=== PATIENT | female | born 1965 | race Hispanic/Latino ===

== ENCOUNTER 2018-05-09 03:46 | Inpatient (IN) | payer OTHER ==
[~2018-05-09] VITALS: Ht 157.5 cm; Wt 87.8 kg
[~2018-05-09 03:46] MED LIST: AMITRIPTYLINE H25 M2 PO; AMLODIPINE BESYL5 M1 PO; BENTYL20 M1 PO; DUAVEE 0.45-201 EACH PO; LYRICA150 M1 PO; LYRICA225 M1 PO; MOBIC15 M1 PO; NAPROSYN500 M1 PO; PANTOPRAZOLE SO40 M1 PO; PROTONIX40 M3 PO; ZOFRAN ODT4 M1 SL
--- NOTE | 2018-05-09 14:35 | Admission Core Measures ---
Acute Coronary Syndrome (CM) ACS Core Measures Acute Coronary Syndrome Diagnosis No Congestive Heart Failure (NEW) CHF Core Measures Congestive Heart Failure Diagnosis No Cerebrovascular Accident CVA Core Measures CVA/TIA Diagnosis No Venous Thromboembolism VTE Core Pepito (View Protocol) VTE Risk Factors Surgery No Mechanical VTE Prophylaxis d/t N/A MechProphylax Ordered No VTE Pharm Prophylaxis d/t NA PharmProphylax ordered Problem List As ranked by this Provider includes Assessment & Plan 1. S/P laparoscopic sleeve gastrectomy 2. GERD (gastroesophageal reflux disease) 3. Sleep apnea 4. Morbid obesity HOME MEDS Home Med List Amitriptyline HCl 25 MG TABLET 1 TAB PO QPM SLEEP (Reported) Amlodipine Besylate 5 MG TABLET 1 TAB PO DAILY BP (Reported) Naproxen (Naprosyn) 500 MG TABLET 1 TAB PO BID PRN PAIN (Reported) Pantoprazole Sodium 40 MG TABLET.DR 1 TAB PO DAILY GI (Reported) Pregabalin (Lyrica) 225 MG CAPSULE 1 CAP PO BID UNKNOWN (Reported)
--- NOTE | 2018-05-09 14:36 | Surg Short-stay <48hrs Dis Sum ---
Visit Information Visit Dates Admission Date: 05/09/18 Discharge Date: 05/10/18 Surgical Short Stay DC Summary Admission Diagnosis: Morbid Obesity (BMI 38), ZBIGNIEW, GERD, Fibromyalgia Final Diagnosis: Morbid Obesity (BMI 38), ZBIGNIEW, GERD, Fibromyalgia, and hiatal hernia Procedure(s): Surgery Date: 05/09/18 Name of Procedure: Laparoscopic Sleeve Gastrectomy, Laparoscopic hiatal hernia repair Summary/Significant Findings: Electively scheduled laparoscopic sleeve gastrectomy, and hiatal hernia repair by on 05/09/18, for history of morbid obesity (BMI 38), ZBIGNIEW, GERD, fibromyalgia, and hiatal hernia. Started on stage 1 bariatric diet post- operatively. Pain control transitioned from iv to oral medication, as able. Her blood pressure was monitored post-operatively, while her home dose of norvasc 5 daily was held. Lovenox teaching done prior to her discharge to home, according to her pre-operative risk assessment. Condition at Discharge: stable Discharge Disposition: home or self care Discharge instructions provided to patient/family: Yes Post discharge follow-up plan: one week follow up with Copies to: Praneeth CARRASCO,Carmen Caraballo
--- NOTE | 2018-05-09 14:38 | Patient Discharge Instructions ---
Discharge Instructions General Discharge Information You were seen/treated for: Morbid Obesity (BMI 38), ZBIGNIEW, GERD, Fibromyalgia, and hiatal hernia You had these procedures: Surgery Date: 05/09/18 Name of Procedure: Laparoscopic Sleeve Gastrectomy, Laparoscopic hiatal hernia repair Watch for these problems: fever>101.3, increased pain, redness/swelling/drainage, shortness of breath, chest pains, dizziness No bath, but you may shower: Yes Other wound care: ok to remove bandaids. leave white steri strips in place. keep incisions clean & dry. Diet Continue normal diet: No Recommended Diet: Bariatric Additional DIET Information: weekly bariatric stage diet advancement as directed, as tolerated Activity Full Activity/No Limits: No Activity Self Limited: Yes Pounds, do NOT lift more than: 10 Other activity limits: no heavy lifting. no strenuous activity. Additional ACTIVITY Info: walk frequently Acute Coronary Syndrome Inclusion Criteria At DC or during hospital stay patient has or had the following: ACS DIAGNOSIS No Discharge Core Measures Meds if any: Prescribed or Continued at Discharge Meds if any: NOT Prescribed or Continued at Discharge Congestive Heart Failure Inclusion Criteria At DC or during hospital stay patient has or had the following: CHF DIAGNOSIS No Discharge Core Measures Meds if any: Prescribed or Continued at Discharge Meds if any: NOT Prescribed or Continued at Discharge Cerebrovascular accident Inclusion Criteria At DC or during hospital stay patient has or had the following: CVA/TIA Diagnosis No Discharge Core Measures Meds if any: Prescribed or Continued at Discharge Meds if any: NOT Prescribed or Continued at Discharge Venous thromboembolism Inclusion Criteria VTE Diagnosis No VTE Type NONE VTE Confirmed by (Test) NONE Discharge Core Measures - Per Current guidelines, there needs to be overlap - treatment for the first 5 days of Warfarin therapy. - If discharged on Warfarin prior to 5 days of - overlap therapy, the patient will need to be - assessed for post discharge needs including - *Post discharge parental anticoagulation - *Warfarin and/or parental anticoagulation education - *Follow up date to check INR post discharge At least 5 days overlap therapy as Inpatient No Meds if any: Prescribed or Continued at Discharge Note: Overlap Therapy is Warfarin and Anticoagulant Meds if any: NOT Prescribed or Continued at Discharge
--- NOTE | 2018-05-09 17:06 | Operative Report ---
Operative/Inv Procedure Report Surgery Date: 05/09/18 Name of Procedure: Laparoscopic Sleeve Gastrectomy, Laparoscopic hiatal hernia repair Pre-Operative Diagnosis: Morbid Obesity BMI 38, ZBIGNIEW, GERD, Fibromyalgia Post-Operative Diagnosis: Morbid Obesity BMI 38, ZBIGNIEW, GERD, Fibromyalgia, hiatal hernia Estimated Blood Loss: less than 50ml Surgeon/Air Motor Repairer: Tarun Greenwood DO Anesthesia: general endotracheal tube IV Fluids: 1200 cc Drains: None Specimens: Stomach Complications: None Condition: Stable Operative Indication: This is a 52-year-old female that presented to the office for workup for bariatric surgery. After appropriate workup was completed I discussed with the patient the band, the sleeve, and the gastric bypass. The patient chose to undergo a sleeve gastrectomy. All risks including but not limited to bleeding, infection, leak, stricture, injury to surrounding bowel/esophagus/stomach/liver/ spleen, long-term reflux, DVT/PE, and mortality of 09/999 patients were discussed in detail. The patient understood everything and decided to proceed. Operative/Procedure Note Note: The patient was brought to the operating room and placed on the operating room table in supine position. Venodyne stockings were placed and adequate general endotracheal anesthesia was obtained. The patient was prepped and draped in standard surgical fashion. Began the procedure by making a 2 cm transverse incision supraumbilically and slightly to the left of the midline. Then using a 12 mm clear Visiport and a 10 mm 0 laparoscope, the abdominal cavity was accessed. Great care was taken to go through the anterior rectus sheath, the posterior rectus sheath, and through the peritoneum. Once we entered the peritoneum the abdominal cavity was insufflated to 15 mmHg. Upon initial examination no obvious gross pathology was seen. Accessory trocars were placed, 5 mm in the epigastrium for the Rogelio liver retractor. The retractor was inserted and the liver was retracted anteriorly exposing the hiatus, small hiatal hernia was seen. 5 mm ports were placed in the right and left upper quadrant, a 5 mm left lateral port, and a 15 mm right lateral port. Began the procedure by mobilizing the greater curvature of the stomach approximately 7 cm from the pylorus. Once the retrogastric space was reached the whole greater curvature was mobilized maintaining hemostasis using Harmonic scalpel. Full hiatal dissection was performed, a small hiatal hernia was seen. The left josy of the diaphragm was dissected away from the esophagus, reducing the hernia sac. We then brought our attention to the right josy, the pars flaccida was opened until the right josy was clearly visualized. Following this the right josy was dissected away from the esophagus as well and the esophagus was circumferentially dissected out of the chest. Vagus nerves were visualized and preserved. At the completion of dissection the esophagus was in the abdominal cavity for about 2-3 cm. The esophagus was retracted anteriorly and the hiatus was closed using 2-0 Tycron suture. At the completion of the closure there was ample room for the esophagus and the hiatus was adequately closed. Posterior adhesions were taken down using Harmonic scalpel as well. Once the stomach was adequately mobilized a 38 Bulgarian bougie was inserted and placed along the lesser curvature of the stomach. Once the bougie was in the appropriate position we began creating our sleeve, two 60 mm black staple loads with seamguard followed by three 60 mm purple staple loads with seamguard as well and finished with a 45 mm purple plain load. Great care was taken to leave ample room at the incisura angularis, to prevent any twisting or kinking of the sleeve, to stay lateral to the esophagogastric fat pad, and to do a full fundal excision. At the completion of the staple line the staple line was examined, it appeared intact and some bleeding was noted which was controlled using endoclips. The bougie was removed, the sleeve was lying nicely without any twisting or kinking. The resected stomach was removed through the right lateral port site. The port and the left upper quadrant were irrigated until clear. All ports were removed under direct visualization no obvious bleeding was noted. The 15 mm port site fascia was closed using 0 Vicryl suture. The skin was closed using 4-0 Monocryl. Steri-Strips and dressings were placed. The patient was successfully extubated and transferred to the recovery room in stable condition. The patient tolerated the procedure well with no complications. Findings: 3 sliding hiatal hernia, 38 Fr bougie CC: Carmen March
[2018-05-09] MEDS ORDERED: LOVENOX40 MG/0.1 SC (17:21)
[2018-05-09] MEDS ORDERED: HYCET 7.5 MG-3473 ML PO (17:21)
[2018-05-09 19:30] VITALS: BP 115/72
[2018-05-09 23:15] VITALS: BP 100/70
[2018-05-10 00:46] VITALS: BP 120/54
[2018-05-10 04:00] VITALS: BP 106/62
--- NOTE | 2018-05-10 08:24 | PN- Bariatrics ---
Subjective Subjective: Patient reports left sided postop pain, controlled with pain reigmen. Reports nausea and belching last night. Denies any further episodes of nausea. Tolerated stage 1 diet last night. Objective Vital Signs and I&Os Vital Signs Date Time Temp Pulse Resp B/P B/P Pulse O2 O2 Flow FiO2 Mean Ox Delivery Rate 05/10 600 95 Room Air 05/10 0400 97.9 83 18 106/62 95 Room Air 05/10 0200 96 Room Air 05/10 0046 97.8 82 18 120/54 95 CPAP 05/09 2315 97.0 78 18 100/70 96 Room Air 05/09 2200 95 Room Air 05/09 2000 97 Nasal 2.0L Cannula 05/09 1930 97.2 79 16 115/72 97 Room Air 05/09 1925 Nasal 2.0L Cannula Intake & Output 05/10 1600 05/10 0800 05/10 0000 05/09 1600 05/09 0800 05/09 0000 Intake Total 750 977 Output Total 500 900 Balance 250 77 Intake, IV 750 437 Intake, Oral 0 540 Output, Urine 500 900 Patient 194 lb 205 lb Weight Weight Bed scale Measurement Method Physical Exam: Gen - resting comfortably in nad Cardaic - S1S2 noted Lungs - CTAB Abd - soft, obese, dressings c/d/i, appropriately tender taryn-incisionally, no rebound or guarding noted Ext - alps in place, no edema or calf pain Current Medications: Current Medications Sig/Randa Start time Last Medication Dose Route Stop Time Status Admin Acetaminophen 1,000 MG Q6 05/09 1800 AC 05/10 N/A 1 UNIT IV 05/10 1214 0529 Acetaminophen 0 .STK-MED ONE 05/09 1419 DC IV Amitriptyline HCl 25 MG AT BEDTIME NEED.. 05/09 1500 AC PO Clindamycin 900 MG Q8H 05/09 2300 DC 05/10 Dextrose/Water 50 ML IV 05/10 0744 0529 Clindamycin 900 MG ONCE 05/09 0000 DC Dextrose/Water 50 ML IV 05/09 2359 Dexamethasone 8 MG ONCE PRN 05/09 1930 AC 05/09 IV PUSH 2045 Dextrose/Sodium 1,000 ML Q8H 05/09 1930 AC 05/10 Chloride IV 0447 Fentanyl Citrate 0 .STK-MED ONE 05/09 1419 DC .ROUTE Heparin Sodium 5,000 UNIT Q8 05/09 2200 AC 05/10 (Porcine) SC 0529 Heparin Sodium 0 .STK-MED ONE 05/09 1408 DC (Porcine) .ROUTE Heparin Sodium 5,000 UNIT ONCE 05/09 0000 DC (Porcine) SC 05/09 2359 Hydrocodone Bitart/ 15 ML Q4-6 PRN PRN 05/10 1600 AC Acetaminophen PO Hydrocodone Bitart/ 0 .STK-MED ONE 05/09 2248 DC Acetaminophen PO Hydromorphone HCl 0 .STK-MED ONE 05/09 1806 DC .ROUTE Hydromorphone HCl 0 .STK-MED ONE 05/09 1731 DC .ROUTE Hydromorphone HCl 0 .STK-MED ONE 05/09 1718 DC .ROUTE Midazolam HCl 0 .STK-MED ONE 05/09 1419 DC .ROUTE Morphine Sulfate 2 MG Q4-6 PRN PRN 05/09 1930 AC 05/10 IV 0451 Ondansetron HCl 4 MG Q6P PRN 05/09 1930 AC IV Ondansetron HCl 0 .STK-MED ONE 05/09 1703 DC .ROUTE Pantoprazole Sodium 40 MG DAILY 05/10 0900 AC 05/10 IV 0813 Pregabalin 225 MG BID 05/09 2100 AC 05/10 PO 0813 Simethicone 40 MG Q6P PRN 05/09 1930 AC 05/09 PO 2253 Results Last 48 Hours of Labs: Laboratory Tests 05/10 0746 Chemistry Sodium Pending Potassium Pending Chloride Pending Carbon Dioxide Pending Anion Gap Pending BUN Pending Creatinine Pending BUN/Creatinine Ratio Pending Glucose Pending Magnesium Pending Hematology CBC w Diff Pending WBC Pending RBC Pending Hgb Pending Hct Pending MCV Pending MCH Pending MCHC Pending RDW Pending Plt Count Pending MPV Pending Assessment/Plan Assessment/Plan 52 F POD 1 s/p lap sleeve, hiatal hernia repair, recovering well with expected postop pain Advance to stage 1 diet Cancel UGI Pain regimen prn DVT ppx - alps, hsq Home meds on board - except norvasc Lovenox teaching Encourage ambulation TRC, IS F/u chem Anticipate d/c later today Will d/w Dr. Greenwood Core Measures Venous Thromboembolism VTE Risk Factors Surgery No Mechanical VTE Prophylaxis d/t N/A MechProphylax Ordered No VTE Pharm Prophylaxis d/t NA PharmProphylax ordered
[2018-05-10] MEDS ORDERED: HYCET 7.5 MG-3473 ML PO (08:27)
[2018-05-10 08:34] LABS: ABSOLUTE BASOPHIL COUNT 0 /CUMM (0.0-0.2); ABSOLUTE EOSINOPHIL COUNT 0 /CUMM (0.0-0.7); ABSOLUTE GRANULOCYTE CT 7.6 /CUMM (1.4-6.5); ABSOLUTE LYMPH COUNT 0.7 /CUMM (1.2-3.4); ABSOLUTE MONOCYTE COUNT 0.3 /CUMM (0.10-0.60); BASOPHIL % 0 % (0.0-2.0); EOSINOPHIL % 0 % (0-5); HEMATOCRIT 37.5 % (37-47); MEAN CORPUSCULAR HGB 30.9 PG (27.0-31.0); MEAN CORPUSCULAR HGB CONC 34.4 G/DL (33.0-37.0); MEAN CORPUSCULAR VOLUME 89.8 FL (81.0-99.0); MEAN PLATELET VOLUME 8.6 FL (7.4-10.4); PLATELET COUNT 255 /CUMM (130-400); RBC DISTRIBUTION WIDTH 13.9 % (11.5-14.5); RED BLOOD CELL CT 4.17 /CUMM (4.20-5.40); WHITE BLOOD CELL COUNT 8.6 /CUMM (4.8-10.8)
[2018-05-10 09:14] LABS: GRANULOCYTE % 88.3 % (42.2-75.2)
[2018-05-10 14:00] VITALS: BP 110/60
== END 2018-05-10 14:36 | DRG 621 ==
LOC: SDA 03:46 → ENRESERV 17:50 → ENTRNSPT 19:01 → EDTRNSPTSTS 19:14 → 2NB 19:22 → CMPTRNSPT 19:35 → ENPENDDIS 05-10 10:10 → DELTRNSPT 05-10 14:29 → 2NB 05-10 14:36
PROVIDERS: Physician Assistant
PROC: 0BQT4ZZ Repair Diaphragm, Percutaneous Endoscopic Approach (ICD-10-PCS; principal; 2018-05-09)
PROC: 0DB64Z3 Excision of Stomach, Percutaneous Endoscopic Approach, Vertical (ICD-10-PCS; principal; 2018-05-09)
PROC: 3E0T3BZ Introduction of Anesthetic Agent into Peripheral Nerves and Plexi, Percutaneous Approach (ICD-10-PCS; principal; 2018-05-09)
DX: E66.01 Morbid (severe) obesity due to excess calories (principal); Z68.38 Body mass index [BMI] 38.0-38.9, adult; G47.33 Obstructive sleep apnea (adult) (pediatric); K21.9 Gastro-esophageal reflux disease without esophagitis; M79.7 Fibromyalgia; R73.03 Prediabetes; Z88.1 Allergy status to other antibiotic agents; Z88.2 Allergy status to sulfonamides; Z90.49 Acquired absence of other specified parts of digestive tract
CPT/HCPCS: 2NBP; 36415; 82436; J0131; J1100; J1644; J2405; J7042